=== PATIENT | male | born 1935 | race Caucasian/White ===

== ENCOUNTER 2016-05-27 13:11 | Day surgery (SDC) | payer MEDICARE, BC ==
[~2016-05-27 13:11] MED LIST: ACET325 PO; ADVA250A INH; CALCTAB32 OR; CHOL1CAP6 PO; DUONI NEB; LATA.005%O OU; LEVA750T PO; MEDR4PAK3 PO; PRAV40TA2 PO; PRED5TAB PO; PROT40TA PO; TERA5CAP34 PO
[2016-05-27 14:16] VITALS: BP 112/68; PULSE 67; RESP 16; TEMP 97.3; O2SAT 93
[2016-05-27 14:55] VITALS: BP 144/69; PULSE 62; RESP 20; TEMP 97.7; O2SAT 93
[2016-05-27] MEDS ORDERED: SODIUM BICARBONATE 8.4% INJ 50 MEQ/50 ML SYR ONE (15:11)
[2016-05-27] MEDS ORDERED: LIDOCAINE HCL 1% PF 30 ML VIAL ONE (15:11)
--- NOTE | 2016-05-27 16:06 | RADRPT ---
EXAM DATE/TIME: 05/27/2016 14:01 [place] COMPARISON: EXTERNAL COMPARISON: US GUIDED NEEDLE BIOPSY RIGHT, February 14, 2014, 13:42. [facility], CT Soft Tissue Neck, M ar 8 2016. INDICATIONS : Right posterior auricular/parotid gland region palpable lump. MEDICAL HISTORY : Hypercholesterolemia. Chronic obstructive pulmonary disease. Arthritis. Glaucoma. Pneumonia. Dyspnea. Mantle cell lymphoma. SURGICAL HISTORY : Back surgery. Right neck lymph node biopsy. Port. Chemotherapy. Radiation therapy. ENCOUNTER: Initial ACUITY: > 1 yr PAIN SCORE: 2/10 LOCATION: Right neck ORGAN: Right soft tissue SPECIMENS: Four core specimen(s) submitted for pathologic evaluation. DEVICE: 20 gauge Temno needle Post procedure scanning reveals no hematoma or other complication. The possibility does exist that the tissue obtained will be non-diagnostic. If the sample is non-charlene gnostic a repeat biopsy or surgical biopsy may need to be performed. TECHNIQUE: 1. Ultrasound guidance for needle biopsy. 2. Needle biopsy. The risks, benefits, and alternatives to ultrasound guided needle biopsy were explained to the patien t in detail including the risk of bleeding and infection. Written and verbal informed consent was ob tained. With the patient on the ultrasound table, images were obtained. Overlying skin was prepped and drape d in the usual sterile fashion and Lidocaine was utilized as a local anesthetic. A needle was advanced into the right neck mass and 4 samples were obtained and submitted for patholog ic evaluation. The patient tolerated the procedure well and left the ultrasound suite in stable condition. CONCLUSION: Uncomplicated ultrasound guided needle biopsy of the right neck mass located in the region of the par otid gland. Zan Hannah MD on May 27, 2016 at 16:03 Board Certified Radiologist. This report was verified electronically.
== END 2016-05-27 15:20 | disposition home or self-care (01) ==
LOC: HRAD 13:11 → HRIP 13:12 → HRAD 15:20
PROVIDERS: ATTEND Internal Medicine Hematology
DX: R22.1 Localized swelling, mass and lump, neck (principal); C83.18 Mantle cell lymphoma, lymph nodes of multiple sites; J44.9 Chronic obstructive pulmonary disease, unspecified; E78.00 Pure hypercholesterolemia, unspecified
CPT/HCPCS: 20206; 76942; 88305; 88307; 88341; 88342